=== PATIENT | female | born 1970 | race African-American/Black ===

== ENCOUNTER 2020-10-16 12:40 | Outpatient (CLI) | payer OTHER, SELFPAY ==
--- NOTE | 2020-10-16 15:00 | NEURO_ITS ---
Impression: # Complains of paresthesia of upper extremities. # Evolving bilateral Carpal Tunnel Syndrome. # No ulnar neuropathy. # Normal needle/EMG exam. Nerve Conduction Studies Anti Sensory Summary Table Stim Site NR Peak (ms) P-T Amp (?V) Site1 Site2 Delta-P (ms) Dist (cm) Ole (m/s) Left Median Anti Sensory (2-3nd Digit) Wrist 3.3 54.8 Wrist 2-3nd Digit 3.3 14.0 42 Wrist 3.3 45.4 Wrist 2-3nd Digit 3.3 14.0 42 Right Median Anti Sensory (2-3nd Digit) Wrist 3.3 85.9 Wrist 2-3nd Digit 3.3 14.0 42 Wrist 3.4 98.6 Wrist 2-3nd Digit 3.3 14.0 42 Left Radial Anti Sensory (Base 1st Digit) Wrist 2.0 40.6 Wrist Base 1st Digit 2.0 0.0 Right Radial Anti Sensory (Base 1st Digit) Wrist 2.3 12.8 Wrist Base 1st Digit 2.3 0.0 Left Ulnar Anti Sensory (5th Digit) Wrist 2.2 38.1 Wrist 5th Digit 2.2 14.0 64 Right Ulnar Anti Sensory (5th Digit) Wrist 2.6 54.3 Wrist 5th Digit 2.6 14.0 54 Motor Summary Table Stim Site NR Onset (ms) O-P Amp (mV) Site1 Site2 Delta-0 (ms) Dist (cm) Ole (m/s) Left Median Motor (Abd Poll Brev) Wrist 3.5 5.8 Elbow Wrist 4.3 26.0 60 Elbow 7.8 6.0 Right Median Motor (Abd Poll Brev) Wrist 3.4 7.4 Elbow Wrist 4.3 26.0 60 Elbow 7.7 4.7 Left Ulnar Motor (Abd Dig Minimi) Wrist 2.3 5.2 A Elbow Wrist 5.1 29.0 57 A Elbow 7.4 3.1 Right Ulnar Motor (Abd Dig Minimi) Wrist 2.3 8.1 A Elbow Wrist 5.3 30.0 57 A Elbow 7.6 7.1 F Wave Studies NR F-Lat (ms) L-R F-Lat (ms) Left Median (Mrkrs) (Abd Poll Brev) 27.60 1.30 Right Median (Mrkrs) (Abd Poll Brev) 26.30 1.30 Left Ulnar (Mrkrs) (Abd Dig Min) 26.17 0.21 Right Ulnar (Mrkrs) (Abd Dig Min) 25.96 0.21 EMG Side Muscle Nerve Root Ins Act Fibs Amp Dur Recrt Comment Right 1stDorInt Ulnar C8-T1 Nml Nml Nml Nml Nml Right Ext Indicis Radial (Post Int) C7-8 Nml Nml Nml Nml Nml Right Ext Digitorum Radial (Post Int) C7-8 Nml Nml Nml Nml Nml Right BrachioRad Radial C5-6 Nml Nml Nml Nml Nml Right PronatorTeres Median C6-7 Nml Nml Nml Nml Nml Right Abd Poll Brev Median C8-T1 Nml Nml Nml Nml Nml Left 1stDorInt Ulnar C8-T1 Nml Nml Nml Nml Nml Left Ext Indicis Radial (Post Int) C7-8 Nml Nml Nml Nml Nml Left Ext Digitorum Radial (Post Int) C7-8 Nml Nml Nml Nml Nml Left BrachioRad Radial C5-6 Nml Nml Nml Nml Nml Left PronatorTeres Median C6-7 Nml Nml Nml Nml Nml Left Abd Poll Brev Median C8-T1 Nml Nml Nml Nml Nml MTDD
== END 2020-10-16 12:41 | disposition home or self-care (01) ==
PROVIDERS: Visit Provider Psychiatry & Neurology Neurology
DX: R20.2 Paresthesia of skin (principal); G56.03 Carpal tunnel syndrome, bilateral upper limbs
CPT/HCPCS: 95886; 95911

== ENCOUNTER 2020-12-08 23:52 | Emergency (ER) | payer OTHER, SELFPAY ==
--- NOTE | ~2020-12-08 | XR_ITS ---
EXAMINATION: XR chest 2V DATE: 12/09/2020 00:42 INDICATION: Dizziness and headache TECHNIQUE: AP and lateral views of the chest are obtained. COMPARISON: None available FINDINGS: There are minimal opacities of the lung bases. There is no pleural effusion or pneumothorax . The cardiomediastinal silhouette is normal. There is mild thoracic spondylosis. IMPRESSION: 1. Bibasilar airspace opacities, consistent with atelectasis versus pneumonia. Reviewed, dictated and finalized at location A.
[2020-12-09 00:15] VITALS: BP 149/102; PULSE 89; RESP 18; TEMP 36.3; O2SAT 98
--- NOTE | 2020-12-09 00:25 | ECG_ITS ---
Measurements Intervals [place] Rate: 77 P: 57 MD: 188 QRS: 18 QRSD: 89 T: 21 QT: 392 QTc: 445 Interpretive Statements SINUS RHYTHM VOLTAGE CRITERIA FOR LVH MINIMAL Q WAVES- HIGH LATERAL LEADS BORDERLINE T WAVE ABNORMALITY- ANTERIOR LEADS BASELINE ARTIFACT- I, III, AVL BORDERLINE ECG Electronically Signed On 12-09-2020 7:11:24 CDT by Dale Ralph D.O.
[2020-12-09 00:49] LABS: Basophils Percent Auto 0.4 % (0.2-1.2); Eosinophils Absolute Auto 0.2 K/mm3 (0-0.3); Eosinophils Percent Auto 2.2 % (0-4.4); Hematocrit 37.2 % (37.0-47.0); Hemoglobin 11.5 g/dL (12.0-15.0); Immature Granulocyte Absolute 0.03 K/mm3 (0.00-0.031); Immature Granulocyte Percent A 0.3 % (0-0.5); Lymphocytes Absolute Auto 2.94 K/mm3 (0.9-3.2); Mean Corpuscular HGB Conc 30.9 g/dl (32-36); Mean Corpuscular Hemoglobin 26.9 pg (26-34); Mean Corpuscular Volume 87.1 fl (80-100); Monocytes Absolute Auto 0.5 K/mm3 (0.1-0.6); Monocytes Percent Auto 5.8 % (2.6-8.5); Neutrophils Absolute Auto 5.5 K/mm3 (1.3-6.7); Neutrophils Percent Auto 59.3 % (45.5-73.1); Platelet Count Result 380 k/mm3 (150-375); Red Blood Count 4.27 M/mm3 (4.2-5.4); Red Cell Distribution Width 17.2 % (11.5-14.5); White Blood Count 9.2 K/mm3 (4.5-10.0)
[2020-12-09 01:00] VITALS: BP 140/92; PULSE 78; RESP 15; O2SAT 98
--- NOTE | 2020-12-09 01:02 | ED.DIZZY ---
HPI - Dizziness General Chief Complaint: Dizziness Stated Complaint: high bp Time Seen by Provider: 12/09/20 00:29 History of Present Illness HPI Narrative: 50 yo female w/ h/o HTN, CVA presents to the ED for a headache. She reports that she had gradual onset of a posterior headache and light headedness this evening. She was concerned because her BP was elevated. She did not try anything for her symptoms. No weakness, numbness, vision change. Related Data Allergies Allergy/AdvReac Type Severity Reaction Status Date / Time lisinopril Allergy Rash Verified 12/09/20 00:18 penicillin V Allergy Rash Verified 12/09/20 00:18 tramadol Allergy Rash Verified 12/09/20 00:18 Review of Systems Review of Systems: All systems reviewed & are unremarkable except as noted in HPI and below Constitutional: Constitutional: Denies chills, Denies fever(s) and Denies weakness Eyes: Eyes: Reports no additional eye complaints ENT: Reports dizziness and Denies sore throat Cardiovascular: Cardiovascular: Reports no additional cardiovascular complaints Respiratory: Respiratory: Reports no additional respiratory complaints Gastrointestinal: Gastrointestinal: Reports no additional gastrointestinal complaints Genitourinary: Genitourinary: Denies hematuria and Denies dysuria Neurologic: Reports dizziness and Reports headache(s) [facility] Past Medical History Medical History (Updated 12/09/20 @ 03:32 by Naman Medley MD) CVA (cerebral vascular accident) HTN (hypertension) Social History Social History Gender identity (if verbalized by the patient): Female Sexual Orientation (if Verbalized by the Patient): Straight or Heterosexual Exam Const: General: no acute distress and alert Orientation/consciousness: patient oriented x3 HENMT: Head: normal to inspection Eyes: Conjunctivae: conjunctivae normal Pupils: Equal, round and reactive pupils present EOM: EOMs intact bilaterally Neck: Neck: normal visual inspection Resp: Effort & Inspection: normal respiratory effort Auscultation: clear to auscultation bilaterally Cardio: Rate: regular rate Rhythm: regular rhythm GI: GI Palp: Yes Soft to palpation and No Tenderness to palpation present (GI) Skin: General skin exam: normal color Neuro: General: patient oriented x3, moves all extremities, no focal motor deficits and CN's II-XI intact bilaterally Speech: normal speech Extrem: General: normal to inspection and no edema Course Vital Signs Vital signs: Vital Signs Temperature 36.3 C L 12/09/20 00:15 Pulse Rate 89 12/09/20 00:15 Respiratory Rate 18 12/09/20 00:15 Blood Pressure 149/102 H 12/09/20 00:15 Pulse Oximetry 98 12/09/20 00:15 Temperature 36.3 C L 12/09/20 00:15 Pulse Rate 68 12/09/20 04:00 Respiratory Rate 17 12/09/20 04:00 Blood Pressure 108/73 12/09/20 04:00 Pulse Oximetry 97 12/09/20 04:00 MDM - Dizziness MDM Narrative Medical decision making narrative: I made several trips to the room to check on her and each time she was sleeping soundly. Work-up entirely negative. Stable ambulation with walker. Differential Diagnosis Differential diagnosis: Likely other (near syncopy, migrain, tension headache, anxiety) Medical Records Attestation: I reviewed the patient's medical records. Lab Data Attestation: I reviewed the patient's lab results. Result diagrams: 12/09/20 00:33 12/09/20 00:34 Labs: Lab Results 12/09/20 12/09/20 12/09/20 Range/Units 00:33 00:34 00:51 WBC 9.2 (4.5-10.0) K/mm3 RBC 4.27 (4.2-5.4) M/mm3 Hgb 11.5 L (12.0-15.0) g/dL Hct 37.2 (37.0-47.0) % MCV 87.1 (80-100) fl MCH 26.9 (26-34) pg MCHC 30.9 L (32-36) g/dl RDW 17.2 H (11.5-14.5) % Plt Count 380 H (150-375) k/mm3 MPV 9.0 (7.4-10.4) fl Immature Gran % (Auto) 0.3 (0-0.5) % Neut % (Auto) 59.3 (45.5-73.1) % Lymph % (Auto) 32.0 (18.3-44.2) % [place] %
[2020-12-09 01:21] LABS: Alanine Aminotransferase 24 U/L (4-35); Albumin Level 4.2 g/dL (3.5-5.1); Alkaline Phosphatase 92 U/L (38-126); Anion Gap 6 mmol/L (8-16); Aspartate Amino Transferase 32 U/L (14-36); Bilirubin,Total 0.2 mg/dL (0.2-1.3); Blood Urea Nitrogen 15 mg/dL (7-17); Calcium 9.2 mg/dL (8.4-10.2); Carbon Dioxide 29 mmol/L (22-30); Chloride 103 mmol/L (98-107); Estimated CRCL calculation 103 ml/min; Estimated Glomerular Filt Rate > 60; Glucose 110 mg/dL (65-105); Potassium 3.4 mmol/L (3.4-5.0); Sodium 138 mmol/L (137-145)
[2020-12-09 01:22] LABS: Add Urine Microscopic? YES; Appearance Urine Cloudy (Clear); Bacteria Urine 1+ /hpf; Bilirubin Urine Negative (Negative); Blood Urine Negative (Negative); Color Urine Straw (Yellow); Glucose Urine UA Negative (Negative); Ketones Urine Negative (Negative); Leukocyte Esterase Ur 1+ LEU/UL (Negative); Nitrate Urine Negative (Negative); Protein Urine Negative (Negative); RBC Urine 0-2 /hpf (0-2); Specific Grav Ur 1.008 (1.001-1.035); Squamous Epithelial Cell Urine Many /hpf (Few); Urobilinogen Urine Negative mg/dL (<2.0)
[2020-12-09 02:00] VITALS: BP 142/88; PULSE 72; RESP 16; O2SAT 99
[2020-12-09] MEDS: diphenhydrAMINE HCl INJ 50 MG/ML VIAL 25 MG IV PUSH (02:00)
[2020-12-09] MEDS: METOCLOPRAMIDE HCL INJ 10 MG/2 ML VIAL IV PUSH (02:00)
[2020-12-09] MEDS: SODIUM CHLORIDE 0.9% IV 500 ML 999 ML IV CONT (02:00)
[2020-12-09] MEDS: KETOROLAC 30 MG/ML VIAL (*BKC) IV PUSH (02:21)
[2020-12-09 04:00] VITALS: BP 108/73; PULSE 68; RESP 17; O2SAT 97
[2020-12-09 05:00] VITALS: BP 138/87; PULSE 71; RESP 16; O2SAT 99
== END 2020-12-09 05:00 | disposition home or self-care (01) ==
PROVIDERS: Emergency Provider Emergency Medicine
DX: R51.9 Headache, unspecified (principal); R42 Dizziness and giddiness; Z86.73 Personal history of transient ischemic attack (TIA), and cerebral infarction without residual deficits; I10 Essential (primary) hypertension
CPT/HCPCS: 36415; 71046; 80053; 81001; 85025; 87086; 87088; 93005; 96361; 96374; 96375; 99284; J1200; J1885; J2765; J7040

== ENCOUNTER 2021-01-09 15:28 | Emergency (ER) | payer OTHER, SELFPAY ==
--- NOTE | ~2021-01-09 | XR_ITS ---
EXAMINATION: XR chest 2V DATE: 01/09/2021 16:20 INDICATION: Cough and chest tightness TECHNIQUE: PA and lateral views of the chest are obtained. COMPARISON: 12/09/2020 FINDINGS: The examination is limited by the patient's body habitus. The lungs are free of acute opac ities. There is no pleural effusion or pneumothorax. The cardiomediastinal silhouette is normal. Ther e is mild thoracic spondylosis. IMPRESSION: 1. No acute cardiopulmonary abnormality. Reviewed, dictated and finalized at location A.
[2021-01-09 15:40] VITALS: BP 135/76; PULSE 92; RESP 24; TEMP 36.9; O2SAT 98
--- NOTE | 2021-01-09 15:52 | ED.URI ---
HPI - URI/Sore Throat General Chief Complaint: Upper Respiratory Infection Stated Complaint: Light headed,Sore throat,Body Aches Time Seen by Provider: 01/09/21 15:52 Source: patient Mode of arrival: ambulatory Limitations: no limitations History of Present Illness HPI Narrative: Maria Isabel Galvez is a 50 yo female with c/o cold symptoms, body aches, chills, fever, headache, sore throat x 2 days. States has been dizzy and fatigued and legs are swollen. Testing for both flu and Covid along with strep She had Covid back in March and was hospitalized [place] for 3 to 4 days and then transferred to [facility] for pulmonology specialty care. Patient has PMH of sarcoidosis, gout, asthma, HTN, high cholesterol. Related Data Home Medications Medication Instructions Recorded Confirmed Symbicort 01/09/21 albuterol sulfate INHALATION 01/09/21 allopurinol 01/09/21 amlodipine 01/09/21 aspirin 01/09/21 bupropion HCl PO 01/09/21 cholecalciferol (vitamin D3) 01/09/21 clonazepam 01/09/21 docusate sodium [DOK] PO 01/09/21 ferrous sulfate 01/09/21 fluticasone propionate INTRANASAL 01/09/21 folic acid 01/09/21 losartan 01/09/21 magnesium oxide mg 01/09/21 methotrexate sodium 01/09/21 metoprolol tartrate 01/09/21 montelukast mg 01/09/21 nystatin 01/09/21 omeprazole 01/09/21 pregabalin 75 mg PO HS 01/09/21 01/09/21 sertraline mg 01/09/21 simvastatin mg 01/09/21 spironolactone 01/09/21 trazodone 01/09/21 valacyclovir 01/09/21 ziprasidone HCl 01/09/21 Allergies Allergy/AdvReac Type Severity Reaction Status Date / Time lisinopril Allergy Rash Verified 12/09/20 00:18 penicillin V Allergy Rash Verified 12/09/20 00:18 tramadol Allergy Rash Verified 12/09/20 00:18 covid vaccine AdvReac Hypotension Uncoded 01/09/21 16:16 Review of Systems Review of Systems: Narrative: CONSTITUTIONAL: Denies fever, chills, sweats. Has fatigue EYES: Denies visual changes, redness, discharge. ENT: Denies rhinorrhea, has congestion, has sore throat, has right otalgia. CARDIOVASCULAR: Denies chest pain, palpitations, edema. RESPIRATORY: Denies dyspnea, has wheezing, has cough GASTROINTESTINAL: Denies abdominal pain, nausea, vomiting, diarrhea. GENITOURINARY: Denies dysuria, hematuria, abnormal discharge SKIN: Denies rash or itching. NEUROLOGIC: Denies numbness, or focal weakness. PSYCHIATRIC: Denies anxiety or depression. PMFSH Past Medical History Medical History Asthma COPD (chronic obstructive pulmonary disease) case management patient CVA (cerebral vascular accident) High cholesterol HTN (hypertension) Sarcoidosis Family History Family History Other Hypertension Social History Social History Smoking status: Never smoker Living arrangements: with family Gender identity (if verbalized by the patient): Female Comments At time of signature, I agree with nursing past medical, surgical, social and family history. There is no relevant family history pertinent to the presenting complaint. Exam Narrative: Exam Narrative: GENERAL: This is a well-nourished, well-developed patient, in moderate distress. O2 sat are 98% HEAD: normocephalic, atraumatic. EYES: Sclera clear/white. Vision is grossly intact. EARS: External ears normal, auditory canals clear L, erythema R without drainage; some cerumen both ears, TMs normal without perforation. Hearing grossly intact. NOSE: External nose normal with nasal discharge, nares without redness, has rhinorrhea. THROAT: Mucous membranes moist, posterior pharynx erythema with thrush on tongue NECK: Neck supple, non-tender CARDIOVASCULAR: Regular rate and rhythm without murmurs, gallops, or rubs. RESPIRATORY: Diminished to auscultation. Breath sounds equal bilaterally. Coarse respirations, wheezes, ra
[2021-01-09] MEDS: IPRATROPIUM BR 0.02% INH SOLN 0.5 MG/2.5 ML VIAL INHALATION (16:36)
[2021-01-09] MEDS: ALBUTEROL SULFATE NEB 2.5 MG/3 ML INH INHALATION (16:36)
[2021-01-09] MEDS: predniSONE 20 MG TABLET 60 MG PO (16:36)
[2021-01-09 16:57] VITALS: PULSE 84; RESP 18; O2SAT 96
[2021-01-10 19:22] LABS: SARS-CoV-2 RNA PCR Negative
== END 2021-01-09 17:23 | disposition home or self-care (01) ==
PROVIDERS: Emergency Provider Nurse Practitioner
DX: B34.9 Viral infection, unspecified (principal); Z20.822 Contact with and (suspected) exposure to COVID-19; J44.9 Chronic obstructive pulmonary disease, unspecified; E78.00 Pure hypercholesterolemia, unspecified; I10 Essential (primary) hypertension; D86.9 Sarcoidosis, unspecified; Z86.73 Personal history of transient ischemic attack (TIA), and cerebral infarction without residual deficits
CPT/HCPCS: 71046; 87081; 87426; 87804; 87880; 99213; C9803; G0463; J7512; U0003; U0005

== ENCOUNTER 2021-07-05 08:06 | Emergency (ER) | payer OTHER, SELFPAY ==
--- NOTE | 2021-07-05 08:15 | ED.GENADULT ---
HPI - General Adult General Chief complaint: Unspecified Stated complaint: Swelling in knee and Shoulder Time Seen by Provider: 07/05/21 08:16 Source: patient and RN notes reviewed Mode of arrival: ambulatory Limitations: no limitations History of Present Illness HPI narrative: Maria Isabel is a 51-year-old female patient who ambulated into the [facility] today. Patient states she has sinus symptoms which include left ear pain ,swelling of the left side of her face, congestion ,and postnasal drainage for the last 3 to 4 days. Patient also states her rheumatoid arthritis and gout are acting up she feels like her left knee and left shoulder are swollen. Patient was recently on prednisone on 06/17 for 8 days. Patient also takes methotrexate 10 mg 6 tablets every Wednesday for rheumatoid arthritis. Patient has a history of several strokes with left-sided weakness. Patient takes allopurinol daily for her gout. Patient was also taking Flonase and Claritin daily. MD complaint: sinus congestion, left arm and shoulder swelling Related Data Home Medications Medication Instructions Recorded Confirmed allopurinol 07/05/21 amlodipine 07/05/21 aspirin 81 mg PO DAILY 07/05/21 07/05/21 bupropion HCl 150 mg PO DAILY 07/05/21 07/05/21 clonazepam 1 mg PO DIRECTED 07/05/21 07/05/21 cyclobenzaprine 10 mg PO DIRECTED 07/05/21 07/05/21 docusate sodium [DOK] 100 mg PO DAILY 07/05/21 07/05/21 ferrous sulfate [FeroSul] 325 mg PO DAILY 07/05/21 07/05/21 fluticasone propionate 50 mcg INTRANASAL DIRECTED 07/05/21 07/05/21 folic acid 1 mg PO DAILY 07/05/21 07/05/21 furosemide 40 mg PO DAILY 07/05/21 07/05/21 ibuprofen 800 mg PO DAILY 07/05/21 07/05/21 linaclotide [Linzess] 72 mcg PO DAILY 07/05/21 07/05/21 loratadine 10 mg PO DAILY 07/05/21 07/05/21 losartan 100 mg PO DAILY 07/05/21 07/05/21 methotrexate sodium 10 mg PO WEEKLY 07/05/21 07/05/21 metoprolol tartrate 50 mg PO DAILY 07/05/21 07/05/21 metoprolol tartrate 75 mg PO DAILY 07/05/21 07/05/21 montelukast 10 mg PO DAILY 07/05/21 07/05/21 pantoprazole 40 mg PO DAILY 07/05/21 07/05/21 potassium chloride 20 meq PO DAILY 07/05/21 07/05/21 prednisone 07/05/21 pregabalin 100 mg PO DAILY 07/05/21 07/05/21 sertraline 100 mg PO DAILY 07/05/21 07/05/21 simvastatin 20 mg PO DAILY 07/05/21 07/05/21 spironolactone 25 mg PO DAILY 07/05/21 07/05/21 sucralfate 1 g PO DAILY 07/05/21 07/05/21 tiotropium bromide [Spiriva with 18 mcg INHALATION DAILY 07/05/21 07/05/21 HandiHaler] trazodone 150 mg PO DAILY 07/05/21 07/05/21 valacyclovir 500 mg PO DAILY 07/05/21 07/05/21 ziprasidone HCl 20 mg PO DAILY 07/05/21 07/05/21 ziprasidone HCl 40 mg PO DAILY 07/05/21 07/05/21 Allergies Allergy/AdvReac Type Severity Reaction Status Date / Time lisinopril Allergy Rash Verified 07/05/21 08:17 penicillin V Allergy Rash Verified 07/05/21 08:17 tramadol Allergy Rash Verified 07/05/21 08:17 covid vaccine AdvReac Hypotension Uncoded 07/05/21 08:17 Review of Systems Review of Systems: CONSTITUTIONAL: Denies body aches, fever, chills, or sweats. EYES: Denies visual changes, redness, or discharge. ENT: Denies rhinorrhea,+ congestion, sore throat, + left otalgia. CARDIOVASCULAR: Denies chest pain, palpitations, or edema. RESPIRATORY: + cough or dyspnea. GASTROINTESTINAL: Denies abdominal pain, nausea, vomiting, or diarrhea. GENITOURINARY: Denies dysuria or hematuria. SKIN: Denies rash, itching, or wounds. MUSCULOSKELETAL: Denies back pain, +left knee and shoulder pain, or myalgia. NEUROLOGIC: Denies headache, numbness, tingling, or weakness. PSYCH: Denies depression or anxiety. All systems reviewed & are unremarkable except as noted in HPI and below PMFSH Past Medical History Medical History Asthma COPD (chronic obstructive pulmonary disease) case management patient CVA (cerebral vascular accident) High cholesterol HTN (hypertension) Sarcoidosis Family Hist
[2021-07-05 08:17] VITALS: BP 142/90; PULSE 81; RESP 18; TEMP 35.8; O2SAT 99
[2021-07-05 08:39] VITALS: BP 142/90; PULSE 81; RESP 18; TEMP 35.8; O2SAT 99
== END 2021-07-05 08:48 | disposition home or self-care (01) ==
PROVIDERS: Emergency Provider Nurse Practitioner Family
DX: M10.9 Gout, unspecified (principal); H66.002 Acute suppurative otitis media without spontaneous rupture of ear drum, left ear; J44.9 Chronic obstructive pulmonary disease, unspecified; E78.00 Pure hypercholesterolemia, unspecified; I10 Essential (primary) hypertension; D86.9 Sarcoidosis, unspecified; Z86.73 Personal history of transient ischemic attack (TIA), and cerebral infarction without residual deficits
CPT/HCPCS: 99213; G0463

== ENCOUNTER 2021-07-21 12:54 | Emergency (ER) | payer OTHER, SELFPAY ==
--- NOTE | ~2021-07-21 | XR_ITS ---
EXAMINATION: XR chest 2V 07/21/2021 15:08 INDICATION: Cough and shortness of breath for 5 days. COPD. Sarcoidosis. PROCEDURE: 2 view chest COMPARISON: 01/09/2021 FINDINGS: The lungs are clear. The cardiomediastinal silhouette is within normal limits. There are no pleural effusions. There is no pneumothorax suspected. IMPRESSION: 1: NO ACUTE CARDIOPULMONARY DISEASE. Reviewed, dictated and finalized at location B. EN [employer]ER
[2021-07-21 13:06] VITALS: BP 145/85; PULSE 83; RESP 20; TEMP 36.1; O2SAT 99
--- NOTE | 2021-07-21 14:47 | ED.URI ---
HPI - URI/Sore Throat General Chief Complaint: Upper Respiratory Infection Stated Complaint: Cough,Shortness of Breath Time Seen by Provider: 07/21/21 14:35 Source: patient and RN notes reviewed Mode of arrival: ambulatory Limitations: no limitations History of Present Illness HPI Narrative: Patient presents today with a 4 to 5-day history of cough with shortness of breath, headache, body aches, fatigue, sore throat. She has been taking ibuprofen, Tylenol, Robitussin. She has also been increasing the use of her albuterol rescue inhaler. History of Covid with pneumonia. History of COPD, asthma, and sarcoidosis, CHF, and diabetes. MD elicited complaint: cough and sore throat Related Data Home Medications Medication Instructions Recorded Confirmed allopurinol 07/05/21 amlodipine 07/05/21 aspirin 81 mg PO DAILY 07/05/21 07/05/21 bupropion HCl 150 mg PO DAILY 07/05/21 07/05/21 clonazepam 1 mg PO DIRECTED 07/05/21 07/05/21 cyclobenzaprine 10 mg PO DIRECTED 07/05/21 07/05/21 docusate sodium [DOK] 100 mg PO DAILY 07/05/21 07/05/21 ferrous sulfate [FeroSul] 325 mg PO DAILY 07/05/21 07/05/21 fluticasone propionate 50 mcg INTRANASAL DIRECTED 07/05/21 07/05/21 folic acid 1 mg PO DAILY 07/05/21 07/05/21 furosemide 40 mg PO DAILY 07/05/21 07/05/21 ibuprofen 800 mg PO DAILY 07/05/21 07/05/21 linaclotide [Linzess] 72 mcg PO DAILY 07/05/21 07/05/21 loratadine 10 mg PO DAILY 07/05/21 07/05/21 losartan 100 mg PO DAILY 07/05/21 07/05/21 methotrexate sodium 10 mg PO WEEKLY 07/05/21 07/05/21 metoprolol tartrate 50 mg PO DAILY 07/05/21 07/05/21 metoprolol tartrate 75 mg PO DAILY 07/05/21 07/05/21 montelukast 10 mg PO DAILY 07/05/21 07/05/21 pantoprazole 40 mg PO DAILY 07/05/21 07/05/21 potassium chloride 20 meq PO DAILY 07/05/21 07/05/21 pregabalin 100 mg PO DAILY 07/05/21 07/05/21 sertraline 100 mg PO DAILY 07/05/21 07/05/21 simvastatin 20 mg PO DAILY 07/05/21 07/05/21 spironolactone 25 mg PO DAILY 07/05/21 07/05/21 sucralfate 1 g PO DAILY 07/05/21 07/05/21 tiotropium bromide [Spiriva with 18 mcg INHALATION DAILY 07/05/21 07/05/21 HandiHaler] trazodone 150 mg PO DAILY 07/05/21 07/05/21 valacyclovir 500 mg PO DAILY 07/05/21 07/05/21 ziprasidone HCl 20 mg PO DAILY 07/05/21 07/05/21 ziprasidone HCl 40 mg PO DAILY 07/05/21 07/05/21 docusate sodium [DOK] PO 07/21/21 magnesium oxide mg 07/21/21 Allergies Allergy/AdvReac Type Severity Reaction Status Date / Time lisinopril Allergy Rash Verified 07/05/21 08:17 penicillin V Allergy Rash Verified 07/05/21 08:17 tramadol Allergy Rash Verified 07/05/21 08:17 covid vaccine AdvReac Hypotension Uncoded 07/05/21 08:17 Review of Systems Review of Systems: CONSTITUTIONAL: Denies fever, chills, or sweats.+ Body aches, fatigue EYES: Denies visual changes, redness, or discharge. ENT: Denies rhinorrhea, congestion, or otalgia.+ Sore throat CARDIOVASCULAR: Denies chest pain, palpitations, or edema. RESPIRATORY: + Cough, shortness of breath GASTROINTESTINAL: Denies abdominal pain, nausea, vomiting, or diarrhea. GENITOURINARY: Denies dysuria or hematuria. SKIN: Denies rash, itching, or wounds. MUSCULOSKELETAL: Denies back pain, joint pain, or myalgia. NEUROLOGIC: Denies numbness, tingling, or weakness.+ Headache PSYCH: Denies depression or anxiety. [facility], [facility] Past Medical History Medical History (Updated 07/21/21 @ 15:37 by Loren Huddleston, [employer]AL [employer] WORK[employer], ) Asthma COPD (chronic obstructive pulmonary disease) case management patient CVA (cerebral vascular accident) High cholesterol History of COVID-19 HTN (hypertension) Sarcoidosis Family History Family History Other Hypertension Social History Social History (Updated 07/21/21 @ 14:50 by Loren Huddleston, GENERAL [employer] WORKER, ) Smoking status: Former smoker Tobacco type: cigars Gender identity (if verbalized by the patient): Female Sexual Orientation (if Verbalized by the Patient): Stra
== END 2021-07-21 15:41 | disposition home or self-care (01) ==
PROVIDERS: Emergency Provider Nurse Practitioner; PCP Nurse Practitioner Family
DX: J02.0 Streptococcal pharyngitis (principal); J44.1 Chronic obstructive pulmonary disease with (acute) exacerbation; Z20.822 Contact with and (suspected) exposure to COVID-19; Z86.73 Personal history of transient ischemic attack (TIA), and cerebral infarction without residual deficits; E78.00 Pure hypercholesterolemia, unspecified; Z86.16 Personal history of COVID-19; I10 Essential (primary) hypertension; D86.9 Sarcoidosis, unspecified; Z87.891 Personal history of nicotine dependence
CPT/HCPCS: 71046; 87426; 87804; 87880; 99213; C9803; G0463

== ENCOUNTER 2023-01-19 13:35 | Emergency (ER) | payer OTHER, SELFPAY ==
--- NOTE | ~2023-01-19 | XR_ITS ---
EXAM: [id number] DATE: 01/19/2023 14:02 HISTORY: right knee pain X 3-4 years . COMPARISON: None available. FINDINGS: Normal mineralization. No fracture or dislocation. No lytic or blastic lesion. Patellar an d quadriceps enthesopathy. Tricompartmental right knee osteoarthritic arthritis, moderate in the medi al compartment. No erosion or periosteal change. Soft tissues within normal limits. IMPRESSION: No acute osseous finding in the right knee. Reviewed, dictated and finalized at location K.
--- NOTE | 2023-01-19 13:37 | ED.EXTPRO ---
HPI - Extremity Problem General Chief complaint: Extremity Problem,Nontraumatic Stated complaint: Right Knee Pain Time Seen by Provider: 01/19/23 13:37 Source: patient Mode of arrival: ambulatory Limitations: no limitations History of Present Illness HPI Narrative: Maria Isabel is a 52-year-old female patient presenting to the clinic today with complaints exacerbation of right-sided knee pain x1 week. She has chronic knee pain bilaterally she reports she is having a lot of pain and swelling in the right knee. No known injury. History of osteoarthritis and gout. States that she was told she is needing bilateral knee replacements. Has not had x-rays done of the right knee for a couple years. Related Data Home Medications Medication Instructions Recorded Confirmed allopurinol 100 mg tablet 07/05/21 amlodipine 10 mg tablet 07/05/21 aspirin 81 mg chewable tablet 81 mg PO DAILY 07/05/21 07/05/21 bupropion HCl 150 mg tablet,12 hr 150 mg PO DAILY 07/05/21 07/05/21 sustained-release clonazepam 1 mg tablet 1 mg PO DIRECTED 07/05/21 07/05/21 cyclobenzaprine 10 mg tablet 10 mg PO DIRECTED 07/05/21 07/05/21 docusate sodium 100 mg capsule 100 mg PO DAILY 07/05/21 07/05/21 (DOK) ferrous sulfate 325 mg (65 mg 325 mg PO DAILY 07/05/21 07/05/21 iron) tablet (FeroSul) fluticasone propionate 50 50 mcg intranasal DIRECTED 07/05/21 07/05/21 mcg/actuation nasal spray,suspension folic acid 1 mg tablet 1 mg PO DAILY 07/05/21 07/05/21 furosemide 40 mg tablet 40 mg PO DAILY 07/05/21 07/05/21 ibuprofen 800 mg tablet 800 mg PO DAILY 07/05/21 07/05/21 linaclotide 72 mcg capsule 72 mcg PO DAILY 07/05/21 07/05/21 (Linzess) loratadine 10 mg tablet 10 mg PO DAILY 07/05/21 07/05/21 losartan 100 mg tablet 100 mg PO DAILY 07/05/21 07/05/21 methotrexate sodium 10 mg tablet 10 mg PO WEEKLY 07/05/21 07/05/21 metoprolol tartrate 50 mg tablet 50 mg PO DAILY 07/05/21 07/05/21 metoprolol tartrate 75 mg tablet 75 mg PO DAILY 07/05/21 07/05/21 montelukast 10 mg tablet 10 mg PO DAILY 07/05/21 07/05/21 pantoprazole 40 mg tablet,delayed 40 mg PO DAILY 07/05/21 07/05/21 release potassium chloride 20 mEq 20 meq PO DAILY 07/05/21 07/05/21 tablet,extended release(part/cryst) pregabalin 100 mg capsule 100 mg PO DAILY 07/05/21 07/05/21 sertraline 100 mg tablet 100 mg PO DAILY 07/05/21 07/05/21 simvastatin 20 mg tablet 20 mg PO DAILY 07/05/21 07/05/21 spironolactone 25 mg tablet 25 mg PO DAILY 07/05/21 07/05/21 sucralfate 1 gram tablet 1 g PO DAILY 07/05/21 07/05/21 tiotropium bromide 18 mcg capsule 18 mcg inhalation DAILY 07/05/21 07/05/21 with inhalation device (Spiriva with HandiHaler) trazodone 150 mg tablet 150 mg PO DAILY 07/05/21 07/05/21 valacyclovir 500 mg tablet 500 mg PO DAILY 07/05/21 07/05/21 ziprasidone HCl 20 mg capsule 20 mg PO DAILY 07/05/21 07/05/21 ziprasidone HCl 40 mg capsule 40 mg PO DAILY 07/05/21 07/05/21 docusate sodium 100 mg capsule PO 07/21/21 (DOK) magnesium oxide 400 mg (241.3 mg mg 07/21/21 magnesium) tablet Allergies Allergy/AdvReac Type Severity Reaction Status Date / Time lisinopril Allergy Rash Verified 01/19/23 13:53 penicillin V Allergy Rash Verified 01/19/23 13:53 tramadol Allergy Rash Verified 01/19/23 13:53 covid vaccine AdvReac Hypotension Uncoded 01/19/23 13:53 Review of Systems Review of Systems: Pertinent positives per HPI. Patient denies any fever, chills, rash, headache, visual changes, dizziness, cough, runny nose, sore throat, shortness of breath, chest pain, palpitations, nausea, vomiting, diarrhea, constipation, abdominal pain, or any urinary issues. COUNTS INCLUDE 234 BEDS AT THE [facility] Past Medical History Medical History Asthma COPD (chronic obstructive pulmonary disease) case management patient CVA (cerebral vascular accident) High cholesterol History of COVID-19 HTN (hypertension) Sarcoidosis Family History Family History (Reviewed 0
[2023-01-19 13:48] VITALS: BP 146/98; PULSE 77; RESP 16; TEMP 37; O2SAT 98
== END 2023-01-19 14:21 | disposition home or self-care (01) ==
PROVIDERS: Emergency Provider Nurse Practitioner Family; PCP Family Medicine
DX: M17.11 Unilateral primary osteoarthritis, right knee (principal); Z87.891 Personal history of nicotine dependence; E78.00 Pure hypercholesterolemia, unspecified; J44.9 Chronic obstructive pulmonary disease, unspecified; I10 Essential (primary) hypertension; D86.9 Sarcoidosis, unspecified; Z86.73 Personal history of transient ischemic attack (TIA), and cerebral infarction without residual deficits; Z86.16 Personal history of COVID-19
CPT/HCPCS: 73560; 99213; G0463

== ENCOUNTER 2023-02-20 09:02 | Emergency (ER) | payer OTHER, SELFPAY ==
[2023-02-20 09:24] VITALS: BP 137/91; PULSE 76; RESP 16; TEMP 36.4; O2SAT 98
--- NOTE | 2023-02-20 09:31 | ED.FEMALEGU ---
HPI - Female Genitourinary General Chief complaint: Urogenital-Female Stated complaint: pain when urinating and bowel movement Time Seen by Provider: 02/20/23 09:31 Source: patient Mode of arrival: ambulatory Limitations: no limitations History of Present Illness HPI Narrative: 52-year-old female presents with complaint of blood in urine, urinary frequency, urgency, lower abdominal cramping for the past 3 days. Afebrile. Denies back pain. Afebrile. All systems reviewed and negative except as noted above. Related Data Home Medications Medication Instructions Recorded Confirmed allopurinol 100 mg tablet 07/05/21 amlodipine 10 mg tablet 07/05/21 aspirin 81 mg chewable tablet 81 mg PO DAILY 07/05/21 07/05/21 bupropion HCl 150 mg tablet,12 hr 150 mg PO DAILY 07/05/21 07/05/21 sustained-release clonazepam 1 mg tablet 1 mg PO DIRECTED 07/05/21 07/05/21 cyclobenzaprine 10 mg tablet 10 mg PO DIRECTED 07/05/21 07/05/21 docusate sodium 100 mg capsule 100 mg PO DAILY 07/05/21 07/05/21 (DOK) ferrous sulfate 325 mg (65 mg 325 mg PO DAILY 07/05/21 07/05/21 iron) tablet (FeroSul) fluticasone propionate 50 50 mcg intranasal DIRECTED 07/05/21 07/05/21 mcg/actuation nasal spray,suspension folic acid 1 mg tablet 1 mg PO DAILY 07/05/21 07/05/21 furosemide 40 mg tablet 40 mg PO DAILY 07/05/21 07/05/21 ibuprofen 800 mg tablet 800 mg PO DAILY 07/05/21 07/05/21 linaclotide 72 mcg capsule 72 mcg PO DAILY 07/05/21 07/05/21 (Linzess) loratadine 10 mg tablet 10 mg PO DAILY 07/05/21 07/05/21 losartan 100 mg tablet 100 mg PO DAILY 07/05/21 07/05/21 methotrexate sodium 10 mg tablet 10 mg PO WEEKLY 07/05/21 07/05/21 metoprolol tartrate 50 mg tablet 50 mg PO DAILY 07/05/21 07/05/21 metoprolol tartrate 75 mg tablet 75 mg PO DAILY 07/05/21 07/05/21 montelukast 10 mg tablet 10 mg PO DAILY 07/05/21 07/05/21 pantoprazole 40 mg tablet,delayed 40 mg PO DAILY 07/05/21 07/05/21 release potassium chloride 20 mEq 20 meq PO DAILY 07/05/21 07/05/21 tablet,extended release(part/cryst) pregabalin 100 mg capsule 100 mg PO DAILY 07/05/21 07/05/21 sertraline 100 mg tablet 100 mg PO DAILY 07/05/21 07/05/21 simvastatin 20 mg tablet 20 mg PO DAILY 07/05/21 07/05/21 spironolactone 25 mg tablet 25 mg PO DAILY 07/05/21 07/05/21 sucralfate 1 gram tablet 1 g PO DAILY 07/05/21 07/05/21 tiotropium bromide 18 mcg capsule 18 mcg inhalation DAILY 07/05/21 07/05/21 with inhalation device (Spiriva with HandiHaler) trazodone 150 mg tablet 150 mg PO DAILY 07/05/21 07/05/21 valacyclovir 500 mg tablet 500 mg PO DAILY 07/05/21 07/05/21 ziprasidone HCl 20 mg capsule 20 mg PO DAILY 07/05/21 07/05/21 ziprasidone HCl 40 mg capsule 40 mg PO DAILY 07/05/21 07/05/21 magnesium oxide 400 mg (241.3 mg mg 07/21/21 magnesium) tablet Allergies Allergy/AdvReac Type Severity Reaction Status Date / Time lisinopril Allergy Rash Verified 02/20/23 09:24 penicillin V Allergy Rash Verified 02/20/23 09:24 tramadol Allergy Rash Verified 02/20/23 09:24 covid vaccine AdvReac Hypotension Uncoded 02/20/23 09:24 Review of Systems Review of Systems: CONSTITUTIONAL: Denies fever, chills, or sweats. EYES: Denies visual changes, redness, or discharge. ENT: Denies rhinorrhea, congestion, sore throat, or otalgia. CARDIOVASCULAR: Denies chest pain, palpitations, or edema. RESPIRATORY: Denies cough or dyspnea. GASTROINTESTINAL: Denies abdominal pain, nausea, vomiting, or diarrhea. GENITOURINARY: Reports dysuria, hematuria, frequency urgency. SKIN: Denies rash or itching. MUSCULOSKELETAL: Denies back pain, joint pain, or myalgia. NEUROLOGIC: Denies headache, numbness, or weakness. PSYCHIATRIC: Denies anxiety or depression. All other systems reviewed are negative, except as documented in HPI. FOR[facility]LY [facility] Past Medical History Medical History Asthma COPD (chronic obstructive pulmonary disease) case management pat
[2023-02-20 09:42] VITALS: BP 137/91; PULSE 76; RESP 16; TEMP 36.4; O2SAT 98
== END 2023-02-20 10:25 | disposition home or self-care (01) ==
PROVIDERS: Emergency Provider Nurse Practitioner Family
DX: N39.0 Urinary tract infection, site not specified (principal); J44.9 Chronic obstructive pulmonary disease, unspecified; E78.00 Pure hypercholesterolemia, unspecified; I10 Essential (primary) hypertension; D86.9 Sarcoidosis, unspecified; Z86.16 Personal history of COVID-19; Z86.73 Personal history of transient ischemic attack (TIA), and cerebral infarction without residual deficits
CPT/HCPCS: 81003; 87086; 87088; 99213; G0463